=== PATIENT | male | born 1985 | race Caucasian/White ===

== ENCOUNTER 2017-08-22 23:33 | Emergency (ER) | payer BC ==
[2017-08-23] MEDS: IPRATRPIUM/ALBUTEROL 0.5/2.5MG 3 ML NEBU. NEB (00:38)
[2017-08-23] MEDS ORDERED: ONDANSETRON PF 4 MG/2 ML VIAL. IV (01:00)
[2017-08-23] MEDS: ALBUTEROL SULFATE 2.5 MG/3 ML NEBU. NEB (01:15)
[2017-08-23] MEDS: predniSONE 10 MG TABLET PO (01:37)
== END 2017-08-23 01:40 | disposition home or self-care (01) ==
LOC: ER 23:33
DX: J01.00 Acute maxillary sinusitis, unspecified (principal); J40 Bronchitis, not specified as acute or chronic; J45.909 Unspecified asthma, uncomplicated
CPT/HCPCS: 71046; 94640; 99284-25; J7512; J7613; J7620

== ENCOUNTER 2019-09-29 10:00 | Emergency (ER) | payer SELFPAY ==
[~2019-09-29] VITALS: Ht 172.7 cm; Wt 59.0 kg
[~2019-09-29 10:00] MED LIST: ALBU2.5V8 INH; ALBU8.5H6 INH; AZIT1PAC9 PO; PRED20TA PO
--- NOTE | 2019-09-29 10:42 | PHYS DOC ---
Past Medical History Past Medical History: No Pertinent History Past Surgical History: Other Additional Past Surgical Histo: HANDS, LEFT KNEE, FACIAL Smoking Status: Never Smoker Alcohol Use: None Drug Use: None General Adult EDM: Chief Complaint: DENTAL PROBLEM HPI: HPI: 34-year-old male presents emergency department today with right upper tooth pain. He is a throbbing aching pain that is moderate. He has had multiple cavities and is working with his dentist to get one cavity at a time. His pain is nonradiating. He denies drooling or tongue swelling or difficulty breathing or swallowing. Review of systems: Negative for chest pain shortness of breath vomiting fevers chills. All other review of systems negative. ED course: 34-year-old male with right upper dental pain from his top molar where he has extensive cavity and decay of the tooth. We will refer him to dentist today for evaluation treatment and start him on oral penicillin. Heart Score: Risk Factors: Risk Factors: DM, Current or recent (<one month) smoker, HTN, HLP, family history of CAD, obesity. Risk Scores: Score 0 - 3: 2.5% MACE over next 6 weeks - Discharge Home Score 4 - 6: 20.3% MACE over next 6 weeks - Admit for Clinical Observation Score 7 - 10: 72.7% MACE over next 6 weeks - Early Invasive Strategies Allergies: Allergies: Allergies Coded Allergies Type Severity Reaction Last Updated Verified No Known Drug Allergies 10/07/13 No Physical Exam: PE: Constitutional: Well developed, well nourished, no acute distress, non-toxic appearance. [] HENT: Normocephalic, atraumatic, bilateral external ears normal, oropharynx moist, no oral exudates, nose normal. [] Patient's right upper molar tooth is mostly fully decayed. Normal oropharyngeal exam. Normal tongue. Normal neck exam. No fluctuant masses. Swallowing without difficulty. Able to swallow secretions without difficulty. Eyes: PERRLA, EOMI, conjunctiva normal, no discharge. [] Neck: Normal range of motion, no tenderness, supple, no stridor. [] Cardiovascular:Heart rate regular rhythm, no murmur [] Lungs & Thorax: Bilateral breath sounds clear to auscultation [] Abdomen: Bowel sounds normal, soft, no tenderness, no masses, no pulsatile masses. [] Skin: Warm, dry, no erythema, no rash. [] Back: No tenderness, no CVA tenderness. [] Extremities: No tenderness, no cyanosis, no clubbing, ROM intact, no edema. [] Neurologic: Alert and oriented X 3, normal motor function, normal sensory fu nction, no focal deficits noted. [] Psychologic: Affect normal, judgement normal, mood normal. [] Current Patient Data: Vital Signs: Vital Signs Date Time Temp Pulse Resp B/P (MAP) Pulse Ox O2 Delivery O2 Flow Rate FiO2 09/29/19 10:07 97.9 58 16 168/110 (129) 99 Room Air 97.9 EKG: EKG: [] Radiology/Procedures: Radiology/Procedures: [] Course & Med Decision Making: Course & Med Decision Making Pertinent Labs and Imaging studies reviewed. (See chart for details) [] Dragon Disclaimer: Dragon Disclaimer: This electronic medical record was generated, in whole or in part, using a voice recognition dictation system. Departure Departure Impression: Primary Impression: Pain, dental Disposition: HOME, SELF-CARE Condition: STABLE Referrals: NO PCP (PCP) Patient Instructions: Dental Pain Scripts Penicillin V Potassium (PENICILLIN V POTASSIUM) 500 Mg Tablet 1 TAB PO TID for 5 Days, #15 TAB 0 Refills Prov: SERGEI LOREDO MD 09/29/19 Justicifation of Admission Dx: Justifications for Admission: Justification of Admission Dx: N/A SERGEI LOREDO MD Sep 29, 2019 10:42
[2019-09-29] MEDS ORDERED: PENI500T PO (10:43)
[2019-09-29 10:50] VITALS: BP 167/98
== END 2019-09-29 10:50 | disposition home or self-care (01) ==
LOC: ER 10:00
DX: K08.89 Other specified disorders of teeth and supporting structures (principal)
CPT/HCPCS: 99283

== ENCOUNTER 2020-02-27 04:19 | Emergency (ER) | payer SELFPAY ==
[~2020-02-27] VITALS: Ht 175.3 cm; Wt 60.0 kg
[~2020-02-27 04:19] MED LIST changes: +PENI500T PO
[2020-02-27 04:39] VITALS: BP 155/74
[2020-02-27] MEDS ORDERED: HYDR-3164 PO (05:46)
[2020-02-27] MEDS ORDERED: PENI500T PO (05:46)
--- NOTE | 2020-02-27 05:46 | PHYS DOC ---
Past Medical History Past Medical History: No Pertinent History Past Surgical History: No Surgical History Additional Past Surgical Histo: HANDS, LEFT KNEE, FACIAL Smoking Status: Current Every Day Smoker Alcohol Use: Occasionally Drug Use: None General Adult EDM: Chief Complaint: TOOTH ACHE OR PAIN HPI: HPI: Patient is a 34 year old male presents with a chief complaint of left lower dental pain. Patient states pain is been ongoing for the last 3 days. Has been taking [id number] Tylenol ibuprofen pain ointment with minimal relief. Review of Systems: Review of Systems: Constitutional: Denies fever or chills. [] Eyes: Denies change in visual acuity. [] HENT: Denies nasal congestion or sore throat. [Positive dental pain] Respiratory: Denies cough or shortness of breath. [] Cardiovascular: Denies chest pain or edema. [] GI: Denies abdominal pain, nausea, vomiting, bloody stools or diarrhea. [] : Denies dysuria. [] Musculoskeletal: Denies back pain or joint pain. [] Integument: Denies rash. [] Neurologic: Denies headache, focal weakness or sensory changes. [] Endocrine: Denies polyuria or polydipsia. [] Lymphatic: Denies swollen glands. [] Psychiatric: Denies depression or anxiety. [] Heart Score: Risk Factors: Risk Factors: DM, Current or recent (<one month) smoker, HTN, HLP, family history of CAD, obesity. Risk Scores: Score 0 - 3: 2.5% MACE over next 6 weeks - Discharge Home Score 4 - 6: 20.3% MACE over next 6 weeks - Admit for Clinical Observation Score 7 - 10: 72.7% MACE over next 6 weeks - Early Invasive Strategies Allergies: Allergies: Allergies Coded Allergies Type Severity Reaction Last Updated Verified No Known Drug Allergies 10/07/13 No Physical Exam: PE: Constitutional: Well developed, well nourished, no acute distress, non-toxic appearance. [] HENT: Normocephalic, atraumatic, bilateral external ears normal, oropharynx moist, no oral exudates, nose normal. [Poor dentition entire mouth gum swelling left lower posterior molar no facial swelling] Eyes: PERRLA, EOMI, conjunctiva normal, no discharge. [] Neck: Normal range of motion, no tenderness, supple, no stridor. [] Cardiovascular:Heart rate regular rhythm, no murmur [] Lungs & Thorax: Bilateral breath sounds clear to auscultation [] Abdomen: Bowel sounds normal, soft, no tenderness, no masses, no pulsatile masses. [] Skin: Warm, dry, no erythema, no rash. [] Back: No tenderness, no CVA tenderness. [] Extremities: No tenderness, no cyanosis, no clubbing, ROM intact, no edema. [] Neurologic: Alert and oriented X 3, normal motor function, normal sensory function, no focal deficits noted. [] Psychologic: Affect normal, judgement normal, mood normal. [] Current Patient Data: Vital Signs: Vital Signs Date Time Temp Pulse Resp B/P (MAP) Pulse Ox O2 Delivery O2 Flow Rate FiO2 02/27/20 04:39 97.5 69 18 155/74 (101) 99 Room Air 97.5 EKG: EKG: [] Radiology/Procedures: Radiology/Procedures: [] Course & Med Decision Making: Course & Med Decision Making Pertinent Labs and Imaging studies reviewed. (See chart for details) [] Dragon Disclaimer: Dragon Disclaimer: This electronic medical record was generated, in whole or in part, using a voice recognition dictation system. Departure Departure Impression: Primary Impression: Pain, dental Disposition: 01 DC HOME SELF CARE/HOMELESS Condition: STABLE Referrals: NO PCP (PCP) Patient Instructions: Dental Pain Scripts Hydrocodone/Apap 5-325 (NORCO 5-325 TABLET) 1 Each Tablet 1 TAB PO PRN Q6HRS PRN for PAIN for 10 Days, #20 TAB 0 Refills Prov: SONNY JUSTICE DO 02/27/20 Penicillin V Potassium (PENICILLIN V POTASSIUM) 500 Mg Tablet 1 TAB PO QID for 10 Days, #40 TAB Prov: SONNY JUSTICE I DO 02/27/20 SONNY JUSTICE DO Feb 27, 2020 05:46
[2020-02-27] MEDS ORDERED: HYDROcodone/APAP 5/325MG 1 TAB TABLET PO ONE (06:30)
== END 2020-02-27 06:15 | disposition home or self-care (01) ==
LOC: ER 04:19
DX: K08.89 Other specified disorders of teeth and supporting structures (principal); F17.200 Nicotine dependence, unspecified, uncomplicated
CPT/HCPCS: 99283

== ENCOUNTER 2020-04-30 17:27 | Emergency (ER) | payer SELFPAY ==
[~2020-04-30] VITALS: Ht 172.7 cm; Wt 59.1 kg
[~2020-04-30 17:27] MED LIST changes: +HYDR-3164 PO
[2020-04-30 19:00] VITALS: BP 138/79
--- NOTE | 2020-04-30 19:13 | PHYS DOC ---
Past Medical History Past Medical History: No Pertinent History Past Surgical History: No Surgical History Additional Past Surgical Histo: HANDS, LEFT KNEE, FACIAL Smoking Status: Current Every Day Smoker Alcohol Use: Occasionally Drug Use: None Adult General Chief Complaint Chief Complaint: FINGER INJURY HPI HPI Patient is a 34 year old male who denies any significant past medical history presenting emergency department for new onset of finger pain and swelling. Patient states that over the last 4 days he developed worsening pain and s welling over the dorsal right pointer finger. 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 Patient notes pain and swelling worsened over the last 24 hours. Denies any associated fever or chills. Denies any history of similar symptoms. Review of Systems Review of Systems Constitutional: Denies fever or chills [] Eyes: Denies change in visual acuity, redness, or eye pain [] HENT: Denies nasal congestion or sore throat [] Respiratory: Denies cough or shortness of breath [] Cardiovascular: No additional information not addressed in HPI [] GI: Denies abdominal pain, nausea, vomiting, bloody stools or diarrhea [] : Denies dysuria or hematuria [] Musculoskeletal: Denies back pain or joint pain [] Integument: Denies rash or skin lesions [] Neurologic: Denies headache, focal weakness or sensory changes [] Endocrine: Denies polyuria or polydipsia [] All other systems were reviewed and found to be within normal limits, except as documented in this note. Current Medications Current Medications Current Medications Medications (Trade) Dose Ordered Sig/Aretha Start Time Stop Time Status Last Admin Dose Admin Acetaminophen/ Hydrocodone Bitart (Lortab 5/325) 2 tab 1X ONCE 04/30/20 19:15 04/30/20 19:16 DC 04/30/20 19:22 2 TAB Ibuprofen (Motrin) 800 mg 1X ONCE 04/30/20 19:15 04/30/20 19:16 DC 04/30/20 19:22 800 MG Lidocaine HCl (Lidocaine 2% 20ml Vial) 20 ml 1X ONCE 04/30/20 19:45 04/30/20 19:46 DC 04/30/20 19:38 20 ML Lidocaine HCl (Lidocaine HCl 2% Abboject) 100 mg 1X ONCE 04/30/20 19:15 04/30/20 19:16 Cancel Allergies Allergies Allergies Coded Allergies Type Severity Reaction Last Updated Verified No Known Drug Allergies 10/07/13 No Physical Exam Physical Exam Constitutional: Well developed, well nourished, no acute distress, non-toxic appearance. [] HENT: Normocephalic, atraumatic, bilateral external ears normal, oropharynx moist, no oral exudates, nose normal. [] Eyes: PERRLA, EOMI, conjunctiva normal, no discharge. [] Neck: Normal range of motion, no tenderness, supple, no stridor. [] Cardiovascular:Heart rate regular rhythm, no murmur [] Lungs & Thorax: Bilateral breath sounds clear to auscultation [] Abdomen: Bowel sounds normal, soft, no tenderness, no masses, no pulsatile masses. [] Skin: Warm, dry, no erythema, no rash. [] Back: No tenderness, no CVA tenderness. [] Extremities: Significant pain and swelling at the distal portion of the right pointer finger primarily at the distal end with a small area that appears like an old poorly healed laceration., ROM intact, no edema. [] Neurologic: Alert and oriented X 3, normal motor function, normal sensory function, no focal deficits noted. [] Psychologic: Affect normal, judgement normal, mood normal. [] Current Patient Data Vital Signs Vital Signs Date Time Temp Pulse Resp B/P (MAP) Pulse Ox O2 Delivery O2 Flow Rate FiO2 04/30/20 19:22 100 04/30/20 19:00 98.2 94 20 138/79 (98) Room Air 98.2 EKG EKG [] Radiology/Procedures Radiology/Procedures [] Course & Med Decision Making Course & Med Decision Making Pertinent Labs and Imaging studies reviewed. (See chart for details) 34m presented with what appears to be an acute infection at the distal portion of the right index finger. At this time there is no significant induration or area that would be suggestive of a paronychia or felon that could be amenable to drainage. In addition the patient was able to flex his finger normally therefore I do not suspect at this time there is an acute tenosynovitis. Will obtain an x-ray to make sure there is no evidence of underlying fracture to raise concern for an infected fracture. If this is negative I feel the patient can be discharged home with a course of antibiotics and hand surgery follow-up. This plan of been relayed to the patient verbalized understanding agreement Wally Disclaimer Wally Disclaimer This electronic medical record was generated, in whole or in part, using a voice recognition dictation system. Departure Departure Impression: Primary Impression: Finger infection Disposition: 01 DC HOME SELF CARE/HOMELESS Condition: GOOD Referrals: NO PCP (PCP) Patient Instructions: Fingertip Infections Additional Instructions: Please call tomorrow to make an appointment with a hand surgeon with Dr Parish Terrazas at [phone] EMERGENCY DEPARTMENT GENERAL DISCHARGE INSTRUCTIONS Thank you for coming to Emergency Department (ED) today and trusting us with you care. We trust that you had a positive experience in our Emergency Department. If you wish to speak to the department management, you may call the Director at [phone]. YOUR FOLLOW UP INSTRUCTIONS ARE FOLLOWS: 1. Do you have a private Doctor? If you do not have a private doctor, please ask for a resource list of physicians or clinics that may be able to assist you with follow up care. 2. The Emergency Physicain has interpreted your x-rays. The X-Ray specialist will also review them. If there is a change in the findings, you will be notified in 48 hours when at all possible. 3. A lab test or culture has been done, your results will be reviewed and you will be notified if you need a change in treatment. ADDITIONAL INSTRUCTIONS AND INFORMATION: 1. Your care today has been supervised by a physician who is specially trained in emergency care. Many problems require more than one evaluation for a complete diagnosis and treatment. We recommend that you schedule your follow up appointment as recommended to ensure complete treatment of you illness or injury. If you are unable to obtain follow up care and continue to have a problem, or if your condition worsens, we recommend that you return to the ED. 2. We are not able to safely determine your condition over the phone nor are we able to give sound medical advice over the phone. For these safety reasons, if you call for medical advice we will ask you to come to the ED for further evaluation. 3. If you have any questions regarding these discharge instructions please call the ED at [phone]. SAFETY INFORMATION: In the interest of safety, wellness, and injury prevention; we encourage you to wear your sealbelt, if you smoke; quite smoking, and we encourage family to use a protective helmet for bicycling and other sporting events that present an increased risk for head injury. IF YOUR SYMPTOMS WORSEN OR NEW SYMPTOMS DEVELOP, OR YOU HAVE CONCERNS ABOUT YOUR CONDITION; OR IF YOUR CONDITION WORSENS WHILE YOU ARE WAITING FOR YOUR FOLLOW UP APPOINTMENT; EITHER CONTACT YOUR PRIMARY CARE DOCTOR, THE PHYSICIAN WHOSE NAME AND NUMBER YOU WERE GIVEN, OR RETURN TO THE ED IMMEDIATELY. Scripts Sulfamethoxazole/Trimethoprim (BACTRIM DS TABLET) 1 Each Tablet 1 TAB PO BID for infection, #14 TAB Prov: KATELYNN MICHAEL MD 04/30/20 KATELYNN MICHAEL MD Apr 30, 2020 19:13
[2020-04-30] MEDS ORDERED: LIDOCAINE 2% 100 MG/5 ML SYRINGE. IV ONE (19:15)
[2020-04-30] MEDS ORDERED: HYDROcodone/APAP 5/325MG 1 TAB TABLET PO ONE (19:15)
[2020-04-30] MEDS ORDERED: IBUPROFEN 400 MG TABLET. PO ONE (19:15)
[2020-04-30] MEDS ORDERED: LIDOCAINE 2% Multi-Dose 20 ML VIAL. IJ ONE (19:45)
--- NOTE | 2020-04-30 20:03 | RAD ---
XR HAND_LEFT 3 VIEWS 04/30/2020 7:34 PM INDICATION: Finger pain COMPARISON: None available. TECHNIQUE: 3 views of the left hand are provided. FINDINGS/ IMPRESSION: There is no acute fracture or dislocation. Joint spaces are maintained. Bone mineralization is within normal limits. Regional soft tissues are within normal limits. There is no soft tissue gas or osseou s erosion. No radiopaque foreign body. Electronically signed by: Monica Wagner MD (04/30/2020 8:00 PM) [facility]
[2020-04-30] MEDS ORDERED: SULF1TAB24 PO (20:32)
[2020-04-30] MEDS ORDERED: OXYC-325 PO (20:34)
[2020-04-30] MEDS ORDERED: SMZ/TMP 800/160MG TABLET. PO ONE (20:45)
== END 2020-04-30 20:49 | disposition home or self-care (01) ==
LOC: ER 17:27
DX: L08.89 Other specified local infections of the skin and subcutaneous tissue (principal); M79.645 Pain in left finger(s); R60.0 Localized edema; F17.200 Nicotine dependence, unspecified, uncomplicated; Z98.890 Other specified postprocedural states
CPT/HCPCS: 64450; 73130; 96372; 99284

== ENCOUNTER 2021-05-17 19:18 | Emergency (ER) | payer SELFPAY ==
[~2021-05-17] VITALS: Ht 172.7 cm; Wt 61.1 kg
[~2021-05-17 19:18] MED LIST changes: +OXYC-325 PO; +SULF1TAB24 PO
[2021-05-17 20:15] VITALS: BP 136/93
--- NOTE | 2021-05-17 20:46 | PHYS DOC ---
Past Medical History Past Medical History: No Pertinent History Past Surgical History: Other Additional Past Surgical Histo: HANDS, LEFT KNEE, FACIAL Smoking Status: Current Every Day Smoker Alcohol Use: Occasionally Drug Use: None General Adult EDM: Chief Complaint: FINGER INJURY HPI: HPI: Patient is a 35-year-old male who presents to the emergency department requesting a second opinion on the infection to his right index finger. Patient states he developed an infection around the fingernail of his right index finger, was seen at [facility] emergency department on the [address], stated they cut above his fingernail and sent him home 2 weeks ago with instructions to soak in mild warm soap every 2 hours. Patient states he did this and noticed the infection became worse, he then returned 5 days ago and was told the infection became worse, they cut along the lateral side of his finger just outside of his fingernail and expressed purulent drainage, started him on clindamycin 450 mg 3 times a day for a 10-day regimen. Patient states they did give him a tetanus immunization. Patient reports his swelling and redness have significantly reduced however he is concerned that the actual wound at his fingertip is looking like a blister in the skin might fall off. Patient denies any recent fever or chills. Patient denies numbness or tingling to his extremities. Patient denies other physical complaints or physical concerns. Review of Systems: Review of Systems: 14 body systems of review of systems have been reviewed. See HPI for pertinent positives and negative responses, otherwise all other systems are negative, nonpertinent or noncontributory. Constitutional: Negative except as outlined in HPI above. Skin: Negative except as outlined in HPI above. Eyes: Negative except as outlined in HPI above. HENT: Negative except as outlined in HPI above. Respiratory: Negative except as outlined in HPI above. Cardiovascular: Negative except as outlined in HPI above. GI: Negative except as outlined in HPI above. : Negative except as outlined in HPI above. Musculoskeletal: Negative except as outlined in HPI above. Integument: Negative except as outlined in HPI above. Neurologic: Negative except as outlined in HPI above. Endocrine: Negative except as outlined in HPI above. Lymphatic: Negative except as outlined in HPI above. Psychiatric: Negative except as outlined in HPI above. Heart Score: C/O Chest Pain: No Risk Factors: Risk Factors: DM, Current or recent (<one month) smoker, HTN, HLP, family history of CAD, obesity. Risk Scores: Score 0 - 3: 2.5% MACE over next 6 weeks - Discharge Home Score 4 - 6: 20.3% MACE over next 6 weeks - Admit for Clinical Observation Score 7 - 10: 72.7% MACE over next 6 weeks - Early Invasive Strategies Allergies: Allergies: Allergies Coded Allergies Type Severity Reaction Last Updated Verified No Known Drug Allergies 10/07/13 No Physical Exam: PE: Constitutional: Well developed, well nourished, no acute distress, non-toxic appearance. 35-year-old male in no apparent distress. HENT: Normocephalic, atraumatic. Eyes: Conjunctiva normal, no discharge. Neck: Normal range of motion, no stridor. Cardiovascular: No cyanosis appreciated, distal cap refill less than 2 seconds. Lungs & Thorax: Patient is in no respiratory distress, no audible adventitious lung sounds appreciated. Abdomen: Nontender, no abnormalities noted. Skin: Warm, dry, no erythema, no rash. See extremity note for focused skin examination. Back: No tenderness, no deformities. Extremities: No tenderness, no cyanosis, no clubbing, ROM intact, no edema. Except for right index finger, there is a 1 cm area of macerated skin with a 0.5 cm linear incision site to the lateral aspect index finger distal phalanx just lateral to nail bed. Evidence of skin granulation underneath macerated skin blister, there is no purulent drainage, no bleeding, mild erythema around index finger tip, there is no lymphangitis appreciated, full flexion extension of all finger joints of the right hand. Distal cap refill is equal bilateral upper extremities, +2 radial pulses equal bilateral upper extremities. Well-healing wound. Neurologic: Alert and oriented X 3, normal motor function, normal sensory function, no focal deficits noted. Psychologic: Affect normal, judgement normal, mood normal. Current Patient Data: Vital Signs: Vital Signs Date Time Temp Pulse Resp B/P (MAP) Pulse Ox O2 Delivery O2 Flow Rate FiO2 05/17/21 20:15 97.9 78 18 136/93 (107) 99 Room Air 97.9 EKG: EKG: [] Radiology/Procedures: Radiology/Procedures: [] Course & Med Decision Making: Course & Med Decision Making Pertinent Labs and Imaging studies reviewed. (See chart for details) 35-year-old male, vital signs reviewed, presents to the emergency department requesting reevaluation of infected wound to the right fingertip. Physical examination reveals a well-healing what appears to be an I&D of phalen infection right hand pointer finger. Patient is currently on clindamycin, reports swelling and redness have resolved. 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 The old blister skin is now macerated white color. The tissue underneath has evidence of skin granulation without evidence of infectious process. This appears to be a well- healing infected wound. The patient reports taking his clindamycin medication as directed. Discussed with patient to continue all medications as directed by the care providers that initially evaluated and performed incision and drainage of the infection. Patient states he does not have a primary care physician to follow-up with. Will give [facility] for patient to choose a primary care provider on his discharge instructions. Reviewed with patient ongoing wound care, return to ER precautions and concerns, patient gave verbal understanding of and is amenable to ED discharge planning. Discussed with the patient all findings and diagnostic testing as well as the need to follow-up with their primary care provider for further evaluation and treatment or return to the ED if any new or worsening symptoms. Strict return precautions were also discussed at length, the patient voiced understanding and agreement with the discharge planning. The patient was nontoxic in appearance, in no apparent distress, and hemodynamically stable at the time of disposition. Wally Disclaimer: Wally Disclaimer: This electronic medical record was generated, in whole or in part, using a voice recognition dictation system. Departure Departure Impression: Primary Impression: Encounter for evaluation of wound Disposition: 01 HOME / SELF CARE / HOMELESS Condition: GOOD Referrals: NO PCP (PCP) Patient Instructions: Wound Care, Enni-od-Hpct, Wound Check Additional Instructions: You were seen today in the emergency department for evaluation of your right index finger wound. This is healing well. Please continue to take your clindamycin antibiotic as directed until complete. Please continue your wound care at home. You may apply bacitracin, keep open to air when possible, as we discussed the whitened blistered area of skin may slough/fall off as the wound healing completes. Please follow-up with a primary care physician for ongoing evaluation of this healing wound. I have attached a list of area health care providers for you to see and establish primary care with. You may also consider using the Wound Care Center here at [facility], call [phone] for an appointment. We have discussed wound care and infectious process. Watch for infection, however with attention to daily wound care will minimize the likelihood of infection setting in. Please return to the emergency department for worsening symptoms or other concerns. Thank you for visiting our Emergency Department. It was a pleasure taking care of you today in the emergency department and we appreciate you trusting us with your care. If any ad ditional problems come up don't hesitate to return to visit us. Please follow up with your primary care provider so they can plan additional care if needed and know about the problem that you had. If symptoms worsen come back to the Emergency Department. Any concerning symptoms that start such as chest pain, shortness of air, weakness or numbness on one side of the body, running high fevers or any other concerning symptoms return to the ER. [facility] [address] [place] [address] [facility] [address] [place] [address] [facility] CARE [address] [facility] [place] [address] [facility] [address] [place] [address] [facility] [address] [place] [address] [address] [place] [address] [address] [place] [address] [facility] [address] [place] [address] [facility] [address] [place] [address] [facility] [address] [place] [address] CONSTANCE BARRETO APRN May 17, 2021 20:46
== END 2021-05-17 20:53 | disposition home or self-care (01) ==
LOC: ER 19:18
DX: L08.89 Other specified local infections of the skin and subcutaneous tissue (principal); F17.200 Nicotine dependence, unspecified, uncomplicated
CPT/HCPCS: 99282